=== PATIENT | male | born 1955 ===

== ENCOUNTER → 2024-12-25 11:44 | Outpatient (REF) | payer MEDICARE, BC, SELFPAY | LOC: HWRAD 11:44 | PROVIDERS: ATTENDING PHYSICIAN Family Medicine | DX: E78.2 Mixed hyperlipidemia (principal); M25.562 Pain in left knee; M25.561 Pain in right knee; R09.89 Other specified symptoms and signs involving the circulatory and respiratory systems | CPT/HCPCS: 73564; 75571; 93880 ==

== ENCOUNTER 2025-02-11 06:24 | Day surgery (SDC) | payer MEDICARE, BC, SELFPAY | END 2025-02-11 12:00 | disposition home or self-care (01) | LOC: GI 06:24 | PROVIDERS: ATTENDING PHYSICIAN Internal Medicine Gastroenterology | DX: Z12.11 Encounter for screening for malignant neoplasm of colon (principal); K64.8 Other hemorrhoids; K57.30 Diverticulosis of large intestine without perforation or abscess without bleeding; Z86.0100 Personal history of colon polyps, unspecified | CPT/HCPCS: G0105 ==